=== PATIENT | male | born 1945 | race Caucasian/White ===

== ENCOUNTER 2022-10-28 17:48 | Emergency (ER) | payer MEDICARE, SELFPAY ==
[2022-10-28 18:40] VITALS: BP 94/56; PULSE 80; RESP 18; TEMP 36.6; O2SAT 94; BMI 24.4
--- NOTE | 2022-10-28 19:43 | ED.FALL ---
HPI - Fall General Time Seen by Provider: 19:43 <Kim Lopez MD - Last Filed: 10/28/22 21:30> Date Seen: 10/28/22 <Kim Lopez MD - Last Filed: 10/28/22 21:30> Chief Complaint: Hip Injury/Pain <Kim Lopez MD - Last Filed: 10/28/22 21:30> Stated Complaint: Fall,R hip pain <Kim Lopez MD - Last Filed: 10/28/22 21:30> Time Seen by Provider: 10/28/22 19:24 <Kim Lopez MD - Last Filed: 10/28/22 21:30> Source: patient, family and RN notes reviewed <Kim Lopez MD - Last Filed: 10/28/22 21:30> Mode of arrival: wheelchair <Kim Lopez MD - Last Filed: 10/28/22 21:30> Limitations: no limitations <Kim Lopez MD - Last Filed: 10/28/22 21:30> History of Present Illness HPI Narrative: Patient is a 77-year-old male that is coming with right hip pain. He was at his cabin in [place] and fell when he let the dog out last night. Fell onto his right side, does believe he hit the back of his head on the floor. He has no headache, no loss of consciousness noted. He did bump his left elbow and the right hand area. These are more skin tears, he states he is not having any pain with movement. They did bandage them at the cabin. What is hurting is his hip area. If he puts any pain on the right leg, has pain in the hip area. He is having difficulty ambulating. He is attempting to use a cane. He denies any numbness tingling in this extremity. His cabin is by [place] [facility]. Patient is anticoagulated with Coumadin, believes he is on it for atrial fibrillation. <Kim Lopez MD - Last Filed: 10/28/22 21:30> MD complaint: fall <Kim Lopez MD - Last Filed: 10/28/22 21:30> Onset (ago): day(s) (Happened yesterday) <Kim Lopez MD - Last Filed: 10/28/22 21:30> Fall from: standing <Kim Lopez MD - Last Filed: 10/28/22 21:30> Loss of consciousness: No <Kim Lopez MD - Last Filed: 10/28/22 21:30> Related Data Home Medications: Previous Rx's Medication Instructions Recorded sotalol 120 mg tablet 60 mg (1/2 x 120 mg) PO BID #90 12/28/21 tabs tamsulosin 0.4 mg capsule 0.4 mg PO QDAY #90 caps 12/28/21 warfarin 4 mg tablet 4 mg PO .UD #30 tabs 07/15/22 warfarin 3 mg tablet 3 mg PO .UD #90 tabs 09/11/22 <Kim Lopez MD - Last Filed: 10/28/22 21:30> Allergies/Adverse Reactions: Allergies Allergy/AdvReac Type Severity Reaction Status Date / Time No Known Drug Allergies Allergy Verified 10/28/22 23:08 <Kim Lopez MD - Last Filed: 10/28/22 21:30> Review of Systems Status of ROS: Reports: 6 or more systems reviewed and unremarkable except as noted in History and below <Kim Lopez MD - Last Filed: 10/28/22 21:30> [facility] Medical History: Medical History History of seizure ?Z87.898 - Personal history of other specified conditions (ICD-10) Atrial fibrillation ?I48.91 - Unspecified atrial fibrillation (ICD-10) senior living current use of anticoagulants with INR goal of 2.0-3.0 ?Z79.01 - senior living (current) use of anticoagulants (ICD-10) <Kim Lopez MD - Last Filed: 10/28/22 21:30> Surgical History: Surgical History History of tonsillectomy (02/04/13) ?Z90.89 - Acquired absence of other organs (ICD-10) History of colonoscopy with polypectomy ?Z98.890 - Other specified postprocedural states (ICD-10) ?Z86.010 - Personal history of colonic polyps (ICD-10) History of cataract extraction ?Z98.49 - Cataract extraction status, unspecified eye (ICD-10) History of bilateral inguinal hernia repair (02/04/13) ?Z98.890 - Other specified postprocedural states (ICD-10) ?Z87.19 - Personal history of other diseases of the digestive system (ICD-10) <Kim Lopez MD - Last Filed: 10/28/22 21:30> Family History: Family History Father Cancer Mother Myocardial infarction, Onset Age: 80 <Kim Lopez MD - Last Filed: 10/28/22 21:30> Social History: Social History Narrative: Former smoker- Quit over 20 years ago Has 2 children. son who lives in [place] and daughter in [facility] Smoking Status: Former smoker Do you use any of these nicotine containing products: None Second hand tobacco smoke exposure: No How often do you have a drink containing alcohol: never How often do you have six or more drinks on one occasion: Less than monthly AUDIT-C Alcohol total score: 1 Non-prescribed substance use: denies use service: Yes <Kim Lopez MD - Last Filed: 10/28/22 21:30> Exam Const: Vital Signs, click to edit/add: Vital Signs - 24 hr 10/28/22 18:40 Temperature 97.8 F Pulse Rate [Pulse Oximeter] 80 Respiratory Rate 18 Blood Pressure [Ri ght Upper Arm] 94/56 L Pulse Oximetry 94 Oxygen Delivery Me thod Room Air <Kim Lopez MD - Last Filed: 10/28/22 21:30> Vital Signs, click to edit/add: Vital Signs - 24 hr 10/28/22 18:40 Temperature 97.8 F Pulse Rate [Pulse Oximeter] 80 Respiratory Rate 18 Blood Pressure [Ri ght Upper Arm] 94/56 L Pulse Oximetry 94 Oxygen Delivery Me thod Room Air <Jose Zamora MD - Last Filed: 10/28/22 23:59> Documenting provider has reviewed patient's vital signs: yes <Kim Lopez MD - Last Filed: 10/28/22 21:30> Common normals: no apparent distress, oriented x3, no limitations and alert <Kim Lopez MD - Last Filed: 10/28/22 21:30> General appearance: cooperative, comfortable, well kempt and frail appearing <Kim Lopez MD - Last Filed: 10/28/22 21:30> HENMT: Common normals: normocephalic, head/scalp atraumatic, hearing grossly normal bilaterally, external ears normal, external nose normal and moist oral mucous membranes <Kim Lopez MD - Last Filed: 10/28/22 21:30> Head and scalp: normocephalic and atraumatic <Kim Lopez MD - Last Filed: 10/28/22 21:30> Face and sinus: normal facial exam (No traumatic changes noted) <Kim Lopez MD - Last Filed: 10/28/22 21:30> Nose: external nose normal <Kim Lopez MD - Last Filed: 10/28/22 21:30> External ear: external ears normal <Kim Lopez MD - Last Filed: 10/28/22 21:30> Eye: Common normals: PERRL, EOMs intact bilaterally, conjunctivae normal and no scleral icterus <Kim Lopez MD - Last Filed: 10/28/22 21:30> Conjunctiva: conjunctiva(e) normal <Kim Lopez MD - Last Filed: 10/28/22 21:30> Pupil: PERRL <Kim Lopez MD - Last Filed: 10/28/22 21:30> Neck & C-Spine: Common normals: full ROM, no lymphadenopathy and supple <Kim Lopez MD - Last Filed: 10/28/22 21:30> Chest: Common normals: inspection of chest normal and palpation of chest normal <Kim Lopez MD - Last Filed: 10/28/22 21:30> Resp: Common normals: normal respiratory effort, no retractions, no use of accessory muscles and clear to auscultation bilaterally <Kim Lopez MD - Last Filed: 10/28/22 21:30> Auscultation: clear to auscultation bilaterally <Kim Lopez MD - Last Filed: 10/28/22 21:30> Cardio: Common normals: regular rate, regular rhythm, S1 normal heart sound, S2 normal heart sound, no gallops, no clicks, no murmurs and no rub <Kim Lopez MD - Last Filed: 10/28/22 21:30> Rate: regular rate <Kim Lopez MD - Last Filed: 10/28/22 21:30> Rhythm: regular rhythm <Kim Lopez MD - Last Filed: 10/28/22 21:30> Heart sounds: S1 normal and S2 normal <Kim Lopez MD - Last Filed: 10/28/22 21:30> GI: Common normals: Normal to inspection, nondistended, normoactive bowel sounds present, soft to palpation, non-tender and no hepatosplenomegaly <Kim Lopez MD - Last Filed: 10/28/22 21:30> Palpation: soft and no hepatosplenomegaly <Kim Lopez MD - Last Filed: 10/28/22 21:30> : Common normals: no CVA tenderness <Kim Lopez MD - Last Filed: 10/28/22 21:30> Bladder/kidney exam: no CVA tenderness <Kim Lopez MD - Last Filed: 10/28/22 21:30> Back & Pelvis: Common normals: no CVA tenderness <Kim Lopez MD - Last Filed: 10/28/22 21:30> Other: No traumatic change noted of his back, does have significant kyphosis. <Kim Lopez MD - Last Filed: 10/28/22 21:30> Extremity: Other: Has pain when I compress over the right hip area and in the groin. Distal sensation of his right lower extremity intact. No deformity or shortening of the leg noted. He does not complain of pain foot ankle or the lower extremity knee through the upper femur area. It really seems to be isolated the hip verses pelvis on that side. <Kim Lopez MD - Last Filed: 10/28/22 21:30> Neuro: Lani Coma Scale: document GCS findings Lani coma scale eye opening: Spontaneous (4) [place] coma scale verbal response: Orientated (5) [place] coma scale motor response: Obey commands (6) [place] coma scale total score: 15 <Kim Lopez MD - Last Filed: 10/28/22 21:30> [place] Coma Scale: document GCS findings Lani coma scale total score: 15 <Jose Zamora MD - Last Filed: 10/28/22 23:59> Common normals: oriented x3 <Kim Lopez MD - Last Filed: 10/28/22 21:30> Sensorium/orientation: alert <Kim Lopez MD - Last Filed: 10/28/22 21:30> Psych: Appearance: well kempt <Kim Lopez MD - Last Filed: 10/28/22 21:30> Course Course Hospital Course: Given the fall on anticoagulation, we are going to proceed with head CT. He will also get right hip with pelvis images. These will be done via x-ray. If there is a hip fracture, will proceed with the full workup. His most recent INR in our records was October 22, 2022, and was 2.5. <Kim Lopez MD - Last Filed: 10/28/22 21:30> Reevaluation(s) Reevaluation #1: Patient accepted in sign-out from Dr. Montoya at change of shift. Briefly, patient fell last night and complains of right hip pain. X-ray and panel interpreted by me demonstrates marked osteoarthritis of the right hip all along with a ramus fracture on that side, although interestingly radiology read this is negative. CT scan of the pelvis ordered to better evaluate for possible occult femur fracture independently interpreted by me does not demonstrate any acute fracture but redemonstrates the ramus fracture. Will ambulate patient with a walker with goal of discharge if patient is able to ambulate. <Jose Zamora MD - Last Filed: 10/28/22 23:59> Time: 22:39 <Jose Zamora MD - Last Filed: 10/28/22 23:59> Reevaluation #2: CT scan of the pelvis independently interpreted by me demonstrates an inferior ramus fracture on the right. Patient able to ambulate with a walker. Plan to discharge with walker and outpatient follow-up. Bladder does look very full on CT scan and postvoid residual was over 1 L. Catheter will be placed and patient will be discharged with this in place, urine culture sent. <Jose Zamora MD - Last Filed: 10/28/22 23:59> Time: 23:03 <Jose Zamora MD - Last Filed: 10/28/22 23:59> Reevaluation #3: Radiology interpretation of CT scan negative for acute fracture. I did call and speak with Dr. Caldwell who did verify presence of a ramus fracture. <Jose Zamora MD - Last Filed: 10/28/22 23:59> Time: 23:50 <Jose Zamora MD - Last Filed: 10/28/22 23:59> Vital Signs Vital signs: Initial Vital Signs Temperature 97.8 F 10/28/22 18:40 Temperature Source Temporal Artery Scan 10/28/22 18:40 Pulse Rate 80 10/28/22 18:40 Pulse Rhythm Regular 10/28/22 18:40 Respiratory Rate 18 10/28/22 18:40 Blood Pressure 94/56 L 10/28/22 18:40 Blood Pressure Mean 68 L 10/28/22 18:40 Pulse Oximetry 94 10/28/22 18:40 Oxygen Delivery Method Room Air 10/28/22 18:40 Vital Signs Temperature 97.8 F 10/28/22 18:40 Pulse Rate 80 10/28/22 18:40 Respiratory Rate 18 10/28/22 18:40 Blood Pressure 94/56 L 10/28/22 18:40 Pulse Oximetry 94 10/28/22 18:40 Oxygen Delivery Method Room Air 10/28/22 18:40 Temperature 97.8 F 10/28/22 18:40 Pulse Rate 80 10/28/22 18:40 Respiratory Rate 18 10/28/22 18:40 Blood Pressure 94/56 L 10/28/22 18:40 Pulse Oximetry 94 10/28/22 18:40 Oxygen Delivery Method Room Air 10/28/22 18:40 <Kim Lopez MD - Last Filed: 10/28/22 21:30> Initial Vital Signs Temperature 97.8 F 10/28/22 18:40 Temperature Source Temporal Artery Scan 10/28/22 18:40 Pulse Rate 80 10/28/22 18:40 Pulse Rhythm Regular 10/28/22 18:40 Respiratory Rate 18 10/28/22 18:40 Blood Pressure 94/56 L 10/28/22 18:40 Blood Pressure Mean 68 L 10/28/22 18:40 Pulse Oximetry 94 10/28/22 18:40 Oxygen Delivery Method Room Air 10/28/22 18:40 Vital Signs Temperature 97.8 F 10/28/22 18:40 Pulse Rate 80 10/28/22 18:40 Respiratory Rate 18 10/28/22 18:40 Blood Pressure 94/56 L 10/28/22 18:40 Pulse Oximetry 94 10/28/22 18:40 Oxygen Delivery Method Room Air 10/28/22 18:40 Temperature 97.8 F 10/28/22 18:40 Pulse Rate 80 10/28/22 18:40 Respiratory Rate 18 10/28/22 18:40 Blood Pressure 94/56 L 10/28/22 18:40 Pulse Oximetry 94 10/28/22 18:40 Oxygen Delivery Method Room Air 10/28/22 18:40 <Jose Zamora MD - Last Filed: 10/28/22 23:59> MDM - Fall Lab Data Attestation: I reviewed the patient's lab results. <Kim Lopez MD - Last Filed: 10/28/22 21:30> Labs: Lab Results 10/28/22 10/28/22 Range/Units 20:50 23:25 WBC 7.12 (4.50-11.00) K/uL RBC 4.28 L (4.30-5.90) m/uL Hgb 12.7 L (13.5-17.5) gm/dL Hct 40.4 (37.0-53.0) % MCV 94 (80-100) fL MCH 30 (26-34) pg MCHC 31 L (32-36) gm/dL RDW Coeff of [place] 13.8 (11.5-15.5) % Plt Count 232 (140-440) K/uL Neut % (Auto) 85.2 H (42.0-72.0) % Lymph % (Auto) 2.7 L (20-44) % [place] % (Auto) 10.3 (0.0-11.0) % Eos % (Auto) 1.1 (0.0-7.0) % Baso % (Auto) 0.6 (0.0-3.0) % Neut # (Auto) 6.10 (1.7-7.0) K/uL Lymph # (Auto) 0.20 L (0.90-2.90) K/uL [place] # (Auto) 0.70 (0.00-0.90) K/UL Eos # (Auto) 0.08 (0.00-0.50) K/uL Baso # (Auto) 0.04 (0.00-0.30) K/uL INR 2.23 H (0.91-1.10) Sodium 141 (135-149) mmol/L Potassium 4.3 (3.6-5.1) mmol/L Chloride 101 (96-114) mmol/L Carbon Dioxide 34 H (20-32) mmol/L BUN 40 H (7-30) mg/dL Creatinine 1.3 (0.5-1.5) mg/dL Estimated Creat Clear 50.68 Estimated GFR 57 ml/min Glucose 93 (60-115) mg/dL Calcium 8.8 (8.4-10.6) mg/dL Total Bilirubin 1.2 (0.1-1.5) mg/dL AST 33 (12-35) U/L ALT 24 (4-50) U/L Alkaline Phosphatase 77 (40-150) U/L Total Protein 6.9 (6.0-8.3) g/dL Albumin 3.9 (3.3-5.0) g/dL Urine Color Yellow (Yellow) Urine Appearance Clear (Clear) Urine pH 6.0 (5.0-8.5) Ur Specific [place] 1.015 (1.000-1.030) Urine Protein Negative (Negative) Urine Glucose (UA) Negative (Negative) Urine Ketones Trace A (Negative) Urine Blood 1+ A (Negative) Urine Nitrite Negative (Negative) Urine Bilirubin Negative (Negative) Urine Urobilinogen 0.2 (0.2-1.0) Ur Leukocyte Esterase Negative (Negative) Urine RBC 0-2 (0-2) Urine WBC 0-2 (0-5) Ur Squamous Epith Cells Few (None-Few) Urine Bacteria None (None) <Kim Lopez MD - Last Filed: 10/28/22 21:30> Lab Results 10/28/22 10/28/22 Range/Units 20:50 23:25 WBC 7.12 (4.50-11.00) K/uL RBC 4.28 L (4.30-5.90) m/uL Hgb 12.7 L (13.5-17.5) gm/dL Hct 40.4 (37.0-53.0) % MCV 94 (80-100) fL MCH 30 (26-34) pg MCHC 31 L (32-36) gm/dL RDW Coeff of [place] 13.8 (11.5-15.5) % Plt Count 232 (140-440) K/uL Neut % (Auto) 85.2 H (42.0-72.0) % Lymph % (Auto) 2.7 L (20-44) % [place] % (Auto) 10.3 (0.0-11.0) % Eos % (Auto) 1.1 (0.0-7.0) % Baso % (Auto) 0.6 (0.0-3.0) % Neut # (Auto) 6.10 (1.7-7.0) K/uL Lymph # (Auto) 0.20 L (0.90-2.90) K/uL [place] # (Auto) 0.70 (0.00-0.90) K/UL Eos # (Auto) 0.08 (0.00-0.50) K/uL Baso # (Auto) 0.04 (0.00-0.30) K/uL INR 2.23 H (0.91-1.10) Sodium 141 (135-149) mmol/L Potassium 4.3 (3.6-5.1) mmol/L Chloride 101 (96-114) mmol/L Carbon Dioxide 34 H (20-32) mmol/L BUN 40 H (7-30) mg/dL Creatinine 1.3 (0.5-1.5) mg/dL Estimated Creat Clear 50.68 Estimated GFR 57 ml/min Glucose 93 (60-115) mg/dL Calcium 8.8 (8.4-10.6) mg/dL Total Bilirubin 1.2 (0.1-1.5) mg/dL AST 33 (12-35) U/L ALT 24 (4-50) U/L Alkaline Phosphatase 77 (40-150) U/L Total Protein 6.9 (6.0-8.3) g/dL Albumin 3.9 (3.3-5.0) g/dL Urine Color Yellow (Yellow) Urine Appearance Clear (Clear) Urine pH 6.0 (5.0-8.5) Ur Specific [place] 1.015 (1.000-1.030) Urine Protein Negative (Negative) Urine Glucose (UA) Negative (Negative) Urine Ketones Trace A (Negative) Urine Blood 1+ A (Negative) Urine Nitrite Negative (Negative) Urine Bilirubin Negative (Negative) Urine Urobilinogen 0.2 (0.2-1.0) Ur Leukocyte Esterase Negative (Negative) Urine RBC 0-2 (0-2) Urine WBC 0-2 (0-5) Ur Squamous Epith Cells Few (None-Few) Urine Bacteria None (None) <Jose Zamora MD - Last Filed: 10/28/22 23:59> Imaging Data CT scan - head: Attestation: I have reviewed the pertinent imaging results. <Kim Lopez MD - Last Filed: 10/28/22 21:30> Radiologist's impression: Patient: RAJIV WALTERS Facility:?[facility] [place] Patient ID:?[id number] Site Patient ID:?[id number]. Site :?1945 Study:?CT Head without contrast-10/28/2022 8:37:21 PM Ordering Physician:Huey Alvarez Final Report: Indication Fall. TECHNIQUE: Noncontrast CT images acquired through the brain. COMPARISON: None. FINDINGS: Motion artifact degrades image quality. [id number] diffuse cerebral volume loss. No mass effect or midline shift. The rangel-white differentiation is maintained. No acute intracranial hemorrhage or pathologic extra-axial fluid collection. Scattered hypoattenuation in the supratentorial white matter, suggestive of mild chronic microvascular ischemic changes. Intracranial atherosclerotic calcifications. Thinning of the ocular lenses. The calvarium is intact. Minimal right maxillary sinus mucosal thickening. The mastoid air cells are clear. IMPRESSION: Artifact degrades image quality. No acute intracranial hemorrhage or mass effect. Please note that all CT scans at this facility use dose modulation, iterative reconstruction, and/or weight-based dosing when appropriate to reduce radiation dose to as low as reasonably achievable. Dictated by Zac Ptitman MD @ 10/28/2022 8:59:59 PM (Electronic Signature) <Kim Lopez MD - Last Filed: 10/28/22 21:30> XR right hip: Attestation: I have reviewed the pertinent imaging results. <Kim Lopez MD - Last Filed: 10/28/22 21:30> Radiologist's impression: Patient: RAJIV WALTERS Facility:?[facility] [place] Patient ID:?[id number] Site Patient ID:?[id number]. Site :?1945 Study:?XRay Hip Right -10/28/2022 8:36:26 PM Ordering Physician:Huey Alvarez Final Report: INDICATION: Right hip pain. COMPARISON: None available. TECHNIQUE: The right hip was examined with AP and cross-table lateral views. An AP view of the pelvis is obtained for a total of three views. FINDINGS: There is no sign of fracture or dislocation of the right hip. The right femoral head and acetabulum are in anatomic alignment. There is severe primary osteoarthritis of the right hip with pcqo-pr-ldac appearance, moderate sclerosis of the articular surfaces, moderate marginal osteophyte formation, and moderate flattening of the right femoral head. The left hip is intact with no sign of fracture or dislocation. There is mild primary osteoarthritis with moderate joint space narrowing and mild sclerosis of the articular surfaces. The SI joints and pubic symphysis are normal in appearance. The rest of the bony pelvis and soft tissues are normal in appearance. IMPRESSION: Severe primary osteoarthritis of the right hip. Mild primary osteoarthritis of the left hip. Dictated by Dre Coleman MD @ 10/28/2022 9:22:29 PM (Electronic Signature) <Kim Lopez MD - Last Filed: 10/28/22 21:30> ECG Data Attestation: I personally reviewed and interpreted this ECG as follows: (Ventricular paced rhythm, 90 bpm) <Kim Lopez MD - Last Filed: 10/28/22 21:30> ECG interpretation date: 10/28/22 <Kim Lopez MD - Last Filed: 10/28/22 21:30> ECG interpretation time: 21:06 <Kim Lopez MD - Last Filed: 10/28/22 21:30> Prior ECG tracings: not available for review <Kim Lopez MD - Last Filed: 10/28/22 21:30> Discharge Plan Discharge Clinical Impression: Closed fracture of pubic ramus, Acute urinary retention <Kim Lopez MD - Last Filed: 10/28/22 21:30> Patient Disposition: Home, Self-Care <Kim Lopez MD - Last Filed: 10/28/22 21:30> Condition: Stable <Kim Lopez MD - Last Filed: 10/28/22 21:30> Instructions: Pelvic Fracture (ED), Vu Catheter Placement and Care (ED) <Kim Lopez MD - Last Filed: 10/28/22 21:30> Additional Instructions: Take Tylenol as needed for pain, Harmony as needed for severe pain Use a walker to help get up and around Follow-up with your primary care doctor this week to discuss physical therapy and next week to have urinary catheter removed <Kim Lopez MD - Last Filed: 10/28/22 21:30> Activity Level: Weight Bearing as Tolerated and Use Walker <Kim Lopez MD - Last Filed: 10/28/22 21:30> Weight Bearing as Tolerated and Use Walker <Jose Zamora MD - Last Filed: 10/28/22 23:59> Discharge Diet: Regular <Kim Lopez MD - Last Filed: 10/28/22 21:30> Regular <Jose Zamora MD - Last Filed: 10/28/22 23:59> Prescriptions: No Action tamsulosin 0.4 mg capsule 0.4 mg PO QDAY Qty: 90 3RF sotalol 120 mg tablet 60 mg PO BID Qty: 90 3RF warfarin 4 mg tablet 4 mg PO .UD Qty: 30 0RF Protocol: Dose Management Condition: Friday Dose/Route: 3 mg Instruction: 1 x 3 mg tablet Condition: Friday Dose/Route: 3 mg Instruction: 1 x 3 mg tablet Condition: Friday Dose/Route: 3 mg Instruction: 1 x 3 mg tablet Condition: Friday Dose/Route: 3 mg Instruction: 1 x 3 mg tablet Condition: Dose/Route: 3 mg Instruction: 1 x 3 mg tablet Condition: Friday Dose/Route: 3 mg Instruction: 1 x 3 mg tablet Condition: Friday Dose/Route: 3 mg Instruction: 1 x 3 mg tablet Protocol Text: Adjustment Start Date: Friday10/22/22 INR Value: 2.5 INR Date: 10/22/22 Recheck Date: 11/19/22 Rx Instructions: Take warfarin 4mg on Sundays and and 3mg on other days of the week. warfarin 3 mg tablet 3 mg PO .UD Qty: 90 0RF Protocol: Dose Management Condition: Friday Dose/Route: 3 mg Instruction: 1 x 3 mg tablet Condition: Friday Dose/Route: 3 mg Instruction: 1 x 3 mg tablet Condition: Friday Dose/Route: 3 mg Instruction: 1 x 3 mg tablet Condition: Friday Dose/Route: 3 mg Instruction: 1 x 3 mg tablet Condition: Dose/Route: 3 mg Instruction: 1 x 3 mg tablet Condition: Friday Dose/Route: 3 mg Instruction: 1 x 3 mg tablet Condition: Friday Dose/Route: 3 mg Instruction: 1 x 3 mg tablet Protocol Text: Adjustment Start Date: Friday10/22/22 INR Value: 2.5 INR Date: 10/22/22 Recheck Date: 11/19/22 Rx Instructions: Take 3mg daily. <Kim Lopez MD - Last Filed: 10/28/22 21:30> Follow Up/Referrals: Mike Ramírez, PAAryC [Primary Care Provider] - <Kim Lopez MD - Last Filed: 10/28/22 21:30> Stand Alone Forms: [facility] Info Instructions <Kim Lopez MD - Last Filed: 10/28/22 21:30>
--- NOTE | 2022-10-28 19:47 | CRLHL7_ITS ---
For Patients: As a result of the Century Cures Act, medical imaging exams and procedure reports are released immediately into your electronic medical record. You may view this report before your referring provider. If you have questions, please contact your health care provider. INDICATION: Right hip pain. COMPARISON: None available. TECHNIQUE: The right hip was examined with AP and cross-table lateral views. An AP view of the pelvis is obtained for a total of three views. FINDINGS: There is no sign of fracture or dislocation of the right hip. The right femoral head and acetabulum are in anatomic alignment. There is severe primary osteoarthritis of the right hip with duxv-sk-wlfy appearance, moderate sclerosis of the articular surfaces, moderate marginal osteophyte formation, and moderate flattening of the right femoral head. The left hip is intact with no sign of fracture or dislocation. There is mild primary osteoarthritis with moderate joint space narrowing and mild sclerosis of the articular surfaces. The SI joints and pubic symphysis are normal in appearance. The rest of the bony pelvis and soft tissues are normal in appearance. IMPRESSION: Severe primary osteoarthritis of the right hip. Mild primary osteoarthritis of the left hip. Dictated by Dre Coleman MD @ 10/28/2022 9:22:29 PM (Electronically Signed)
--- NOTE | 2022-10-28 19:48 | CRLHL7_ITS ---
For Patients: As a result of the Century Cures Act, medical imaging exams and procedure reports are released immediately into your electronic medical record. You may view this report before your referring provider. If you have questions, please contact your health care provider. Indication Fall. TECHNIQUE: Noncontrast CT images acquired through the brain. COMPARISON: None. FINDINGS: Motion artifact degrades image quality. [id number] diffuse cerebral volume loss. No mass effect or midline shift. The rangel-white differentiation is maintained. No acute intracranial hemorrhage or pathologic extra-axial fluid collection. Scattered hypoattenuation in the supratentorial white matter, suggestive of mild chronic microvascular ischemic changes. Intracranial atherosclerotic calcifications. Thinning of the ocular lenses. The calvarium is intact. Minimal right maxillary sinus mucosal thickening. The mastoid air cells are clear. IMPRESSION: Artifact degrades image quality. No acute intracranial hemorrhage or mass effect. Please note that all CT scans at this facility use dose modulation, iterative reconstruction, and/or weight-based dosing when appropriate to reduce radiation dose to as low as reasonably achievable. Dictated by Zac Pittman MD @ 10/28/2022 8:59:59 PM (Electronically Signed)
--- NOTE | 2022-10-28 20:33 | CRLHL7_ITS ---
For Patients: As a result of the Century Cures Act, medical imaging exams and procedure reports are released immediately into your electronic medical record. You may view this report before your referring provider. If you have questions, please contact your health care provider. INDICATION: Chest pain. TECHNIQUE: Chest 1 views. COMPARISON: None. FINDINGS: Cardiovascular and mediastinum: Cardiomediastinal silhouette is mildly enlarged. Left chest wall AICD with leads extending to the right atrium and ventricle. Lungs and pleural spaces: Mild bilateral perihilar opacities. No sign of pleural effusion. No pneumothorax. Bones and soft tissues: Unremarkable for age.. IMPRESSION: Mild cardiomegaly with mild pulmonary edema. Dictated by Ba Caldwell MD @ 10/28/2022 11:26:00 PM (Electronically Signed)
[2022-10-28 21:04] LABS: Basophils Absolute Auto 0.04 K/uL (0.00-0.30); Basophils Percent Auto 0.6 % (0.0-3.0); Eosinophils Absolute Auto 0.08 K/uL (0.00-0.50); Eosinophils Percent Auto 1.1 % (0.0-7.0); Hematocrit 40.4 % (37.0-53.0); Hemoglobin* 12.7 gm/dL (13.5-17.5); Immature Granulocytes Abs Auto 0.01 K/uL (0.00-0.30); Immature Granulocytes Pct Auto 0.1 %; Lymphocytes Percent Auto 2.7 % (20-44); Mean Corpuscular HGB Conc 31 gm/dL (32-36); Mean Corpuscular Hemoglobin 30 pg (26-34); Mean Corpuscular Volume 94 fL (80-100); Monocytes Percent Auto 10.3 % (0.0-11.0); Neutrophils Percent Auto 85.2 % (42.0-72.0); Platelet Count* 232 K/uL (140-440); RDW Coefficient of Variation % 13.8 % (11.5-15.5); Red Blood Count 4.28 m/uL (4.30-5.90); White Blood Count* 7.12 K/uL (4.50-11.00)
[2022-10-28 21:11] LABS: Slide Review Reflex No
[2022-10-28 21:16] LABS: Albumin* 3.9 g/dL (3.3-5.0); Chloride* 101 mmol/L (96-114)
[2022-10-28 21:17] LABS: Potassium* 4.3 mmol/L (3.6-5.1); Sodium* 141 mmol/L (135-149)
[2022-10-28 21:19] LABS: Carbon Dioxide* 34 mmol/L (20-32); Creatinine* 1.3 mg/dL (0.5-1.5); Est. Creatinine Clearance* 50.68; Estimated Glomerular Filt Rate 57 ml/min; INR 2.23 (0.91-1.10); Prothrombin Time 25.8 Seconds
[2022-10-28 21:20] LABS: Alanine Aminotransferase* 24 U/L (4-50); Alkaline Phosphatase* 77 U/L (40-150); Aspartate Amino Transferase* 33 U/L (12-35); Bilirubin Total* 1.2 mg/dL (0.1-1.5); Blood Urea Nitrogen* 40 mg/dL (7-30); Calcium* 8.8 mg/dL (8.4-10.6); Glucose* 93 mg/dL (60-115); Total Protein* 6.9 g/dL (6.0-8.3)
[2022-10-28 21:23] VITALS: BP 136/88; PULSE 88; RESP 16; TEMP 36.1; O2SAT 97
--- NOTE | 2022-10-28 21:23 | CRLHL7_ITS ---
For Patients: As a result of the Cures Act, medical imaging exams and procedure reports are released immediately into your electronic medical record. You may view this report before your referring provider. If you have questions, please contact your health care provider. INDICATION: Fall. TECHNIQUE: CT pelvis without contrast. COMPARISON: None. FINDINGS: Bones: Alignment is normal. No sign of acute fracture. No suspicious bony lesions. Diffuse demineralization of the visualized bones. Joints: Severe degenerative changes in the right hip especially along the superior aspect of the right femoroacetabular joint. There are productive changes noted throughout the remaining portions of the joint and along the femoral head.. Mild degenerative changes are noted in the left hip and bilateral SI joints. Soft tissues: Bladder is severely distended. Rectal stool ball is noted. Mild prostatomegaly. Bowel loops are otherwise unremarkable. Moderate vascular calcifications. Mild muscular atrophy.. IMPRESSION: No acute fracture or dislocation. Severe degenerative changes in the right hip.. Please note that all CT scans at this facility use dose modulation, iterative reconstruction, and/or weight-based dosing when appropriate to reduce radiation dose to as low as reasonably achievable. Dictated by Ba Caldwell MD @ 10/28/2022 11:30:11 PM (Electronically Signed)
[2022-10-28 23:32] LABS: Appearance Urine Clear (Clear); Bilirubin Urine Negative (Negative); Blood Urine 1+ (Negative); Color Urine Yellow (Yellow); Glucose Urine Negative (Negative); Ketones Urine Trace (Negative); Leukocyte Esterase Urine Negative (Negative); Nitrite Urine Negative (Negative); Protein Urine Negative (Negative); Specific Gravity Urine 1.015 (1.000-1.030); Urobilinogen Urine 0.2 (0.2-1.0)
[2022-10-28 23:40] LABS: RBC Urine 0-2 (0-2); Squamous Epithelial Cell Urine Few (None-Few); WBC Urine 0-2 (0-5)
== END 2022-10-29 00:03 | disposition home or self-care (01) ==
PROVIDERS: Family Medicine; Emergency Provider Family Medicine; PCP Physician Assistant Medical
DX: S32.591A Other specified fracture of right pubis, initial encounter for closed fracture (principal); R33.9 Retention of urine, unspecified; W18.30XA Fall on same level, unspecified, initial encounter; Z13.0 Encounter for screening for diseases of the blood and blood-forming organs and certain disorders involving the immune mechanism
CPT/HCPCS: 36415; 51702; 51798; 70450; 71045; 72192; 73502; 80053; 81001; 85025; 85610; 93005; 99284; 99285